=== PATIENT | male | born 1995 | race Caucasian/White ===

== ENCOUNTER 2021-03-06 13:27 | Emergency (ER) | payer MEDICAID ==
[~2021-03-06] VITALS: Ht 175.3 cm; Wt 102.1 kg
[2021-03-06 13:34] VITALS: BP_SYST 150
[2021-03-06 15:11] LABS: BASOPHILS % (AUTO) 0.6 % (0.0-2.0); EOSINOPHILS % (AUTO) 0.2 % (0.0-4.0); HEMATOCRIT 42.2 % (36-54); HEMOGLOBIN 14.1 g/dL (14.0-18.0); LYMPHOCYTES # (AUTO) 1.2 K/uL (1.0-5.5); LYMPHOCYTES % (AUTO) 14.3 % (20.5-51.5); MEAN CORPUSCULAR HEMOGLOBIN 30 pg (27-31); MEAN CORPUSCULAR HGB CONC 34 % (32-36); MEAN CORPUSCULAR VOLUME 88 fL (79.0-98.0); MONOCYTES # (AUTO) 0.4 K/uL (0.0-1.0); MONOCYTES % (AUTO) 5.1 % (1.7-9.3); NEUTROPHILS # (AUTO) 6.5 K/uL (1.8-7.7); NEUTROPHILS % (AUTO) 79.8 % (40.0-70.0); PLATELET COUNT (AUTO) 229 K/uL (130-430); RED BLOOD CELL COUNT(AUTO) 4.79 MIL/uL (4.2-6.2); RED CELL DISTRIBUTION WIDTH 13.5 % (9.0-15.0); WHITE BLOOD COUNT (AUTO) 8.2 K/uL (4.8-10.8)
[2021-03-06 15:28] LABS: CALCIUM 9.4 mg/dL (8.4-11.0); CREATININE 1.02 mg/dL (0.55-1.30); POTASSIUM 3.7 mmol/L (3.5-5.1)
[2021-03-06 15:43] LABS: ALBUMIN 4.6 g/dL (3.4-4.8); PHOSPHORUS 3.7 mg/dL (2.7-4.5); THYROID STIMULATING HORMONE 0.29 uIu/mL (0.36-3.74); TOTAL BILIRUBIN 0.5 mg/dL (0.0-1.0)
[2021-03-06 16:43] VITALS: BP_SYST 150
== END 2021-03-06 16:43 | disposition home or self-care (01) ==
LOC: SED 13:27
DX: R20.2 Paresthesia of skin (principal); R03.0 Elevated blood-pressure reading, without diagnosis of hypertension; E03.9 Hypothyroidism, unspecified
CPT/HCPCS: 36415; 80053; 83735; 84100; 84443; 85025; 99283

== ENCOUNTER 2021-04-10 19:48 | Emergency (ER) | payer MEDICAID ==
[~2021-04-10] VITALS: Ht 175.3 cm; Wt 95.3 kg
[2021-04-10 20:00] VITALS: BP_SYST 125
--- NOTE | 2021-04-10 22:20 | NUR ---
Patient to ER bed 4 to gown for evaluation. Side rails up.
--- NOTE | 2021-04-10 22:26 | NUR ---
PATIENT AAOX4 AND AMBULATORY FROM HOME C/O COUGH SINCE FRIDAY. STATED HAD A COVID TEST DONE TODAY AND WAS NEGATIVE. HAS BEEN HAVING WORSENING COUGH THESE PAST COUPLE DAYS. VSS. HX OF HYPOTHYROIDISM, ASTHMA.
--- NOTE | 2021-04-10 22:30 | NUR ---
DR. CEDEÑO AT BEDSIDE FOR EVALUATION.
[2021-04-10] MEDS ORDERED: IPRATROPIUM/ALBUTEROL SULFATE 3 ML AMPUL.NEB (DUONEB) INH ONE (22:45)
--- NOTE | 2021-04-10 22:45 | NUR ---
RESPIRATORY AT BEDSIDE TO GIVE BREATHING TX.
[2021-04-10] MEDS ORDERED: ALBMDI INH (22:55)
[2021-04-10 23:06] VITALS: BP_SYST 125
--- NOTE | 2021-04-10 23:08 | NUR ---
Patient given written and verbal discharge instructions and verbalizes understanding. DR. DAVIDSON UGARTE MD discussed with patient the results and treatment provided. Patient in stable condition. ID arm band removed. Rx of VENTOLIN given. Patient educated on pain management and to follow up with PMD. Pain Scale 0/10 Opportunity for questions provided and answered. Medication side effect fact sheet provided.
== END 2021-04-10 23:08 | disposition home or self-care (01) ==
LOC: SED 19:48
DX: J45.901 Unspecified asthma with (acute) exacerbation (principal); J06.9 Acute upper respiratory infection, unspecified; E03.9 Hypothyroidism, unspecified; Z79.899 Other long term (current) drug therapy
CPT/HCPCS: 94640; 99283

== ENCOUNTER 2021-04-15 14:16 | Emergency (ER) | payer MEDICAID, SELFPAY ==
[~2021-04-15 14:16] MED LIST: ALBMDI INH
--- NOTE | 2021-04-15 15:50 | NUR ---
DR DAUGHERTY IN TO ASSESS
[2021-04-15] MEDS ORDERED: PRED20TA PO (16:56)
--- NOTE | 2021-04-15 17:35 | NUR ---
CALM, ALERT, RESP UNLABORED, SKIN WAR AND D RY
--- NOTE | 2021-04-15 17:44 | NUR ---
Patient given written and verbal discharge instructions and verbalizes understanding. ER MD discussed with patient the results and treatment provided. Patient in stable condition. ID arm band removed. Rx ofPREDNISONE given. Patient educated on pain management and to follow up with PMD. Pain Scale . Opportunity for questions provided and answered. Medication side effect fact sheet provided.
[2021-04-15 17:46] VITALS: BP_SYST 134
== END 2021-04-15 17:46 | disposition home or self-care (01) ==
LOC: SED 14:16
DX: U07.1 COVID-19 (principal); E03.9 Hypothyroidism, unspecified; J45.909 Unspecified asthma, uncomplicated; Z79.899 Other long term (current) drug therapy
CPT/HCPCS: 71045; 99283

== ENCOUNTER 2022-03-30 09:42 | Emergency (ER) | payer MEDICAID ==
[~2022-03-30] VITALS: Ht 175.3 cm; Wt 93.9 kg
[~2022-03-30 09:42] MED LIST changes: +PRED20TA PO
[2022-03-30 09:50] VITALS: BP_SYST 120
[2022-03-30] MEDS ORDERED: FAMOTIDINE 20 MG TABLET PO ONE (11:00)
[2022-03-30] MEDS ORDERED: MAG-AL HYDROX/SIMETH 30 ML UDC PO ONE (11:00)
--- NOTE | 2022-03-30 11:18 | NUR ---
Patient to ER bed 5 to gown for evaluation. Side rails up. Report given to PAMELLA FRANK.
--- NOTE | 2022-03-30 11:20 | NUR ---
RECEIVED PT FROM [facility]. PT BIBS FOR SOB. PT AAOX4. RESP E/U. NO R/A. PT HAS C/O UPSET STOMACH. ABDOMEN SOFT, NONTENDER. DENIES DIARRHEA/CONSTIPATION. NORMAL S1S2 NOTED. SKIN WARM, INTACT, CAP REFILL < 3SECS. NO EDEMA. DENIES PAIN SIDERAILS UP X2.
--- NOTE | 2022-03-30 11:26 | NUR ---
DR. TERRY AT BEDSIDE TO ASSESS PT.
[2022-03-30 11:42] LABS: ANION GAP 5 (5-15); CALCIUM 9.2 mg/dL (8.4-11.0); CHLORIDE 99 mmol/L (98-107); CREATININE 1.19 mg/dL (0.55-1.30); GLUCOSE 89 mg/dL (70-99); POTASSIUM 3.7 mmol/L (3.5-5.1); UREA NITROGEN, BLOOD 21 mg/dL (8-21)
[2022-03-30 11:46] LABS: BASOPHILS % (AUTO) 0.4 % (0.0-2.0); EOSINOPHILS % (AUTO) 0.3 % (0.0-4.0); HEMATOCRIT 41.3 % (36-54); HEMOGLOBIN 14.1 g/dL (14.0-18.0); LYMPHOCYTES # (AUTO) 2.5 K/uL (1.0-5.5); LYMPHOCYTES % (AUTO) 30.7 % (20.5-51.5); MEAN CORPUSCULAR HEMOGLOBIN 30 pg (27-31); MEAN CORPUSCULAR HGB CONC 34 % (32-36); MEAN CORPUSCULAR VOLUME 87 fL (79.0-98.0); MONOCYTES # (AUTO) 0.6 K/uL (0.0-1.0); MONOCYTES % (AUTO) 7.2 % (1.7-9.3); NEUTROPHILS # (AUTO) 5.1 K/uL (1.8-7.7); NEUTROPHILS % (AUTO) 61.4 % (40.0-70.0); PLATELET COUNT (AUTO) 226 K/uL (130-430); RED BLOOD CELL COUNT(AUTO) 4.72 MIL/uL (4.2-6.2); RED CELL DISTRIBUTION WIDTH 12.8 % (9.0-15.0); WHITE BLOOD COUNT (AUTO) 8.2 K/uL (4.8-10.8)
[2022-03-30 11:49] LABS: ALANINE AMINOTRANSFERASE 22 U/L (12-78); ALBUMIN 4.1 g/dL (3.4-4.8); ASPARTATE AMINOTRANSFERASE 11 U/L (10-37); TOTAL BILIRUBIN 0.5 mg/dL (0.0-1.0)
[2022-03-30 11:52] LABS: GFR AFRICAN AMERICAN 94 mL/min (>90)
--- NOTE | 2022-03-30 12:02 | NUR ---
SCHEDULED MEDS GIVEN ORDERED.
[2022-03-30] MEDS ORDERED: ALBU2.5V7 INH (13:07)
[2022-03-30 13:44] VITALS: BP_SYST 118
--- NOTE | 2022-03-30 14:43 | NUR ---
Patient given written and verbal discharge instructions and verbalizes understanding. ER MD discussed with patient the results and treatment provided. Patient in stable condition. ID arm band removed. IV catheter removed intact and dressing applied, no active bleeding. Rx of ALBURTEROL given. Patient educated on pain management and to follow up with PMD. Pain Scale 0/10. Opportunity for questions provided and answered. Medication side effect fact sheet provided.
== END 2022-03-30 13:44 | disposition home or self-care (01) ==
LOC: SED 09:42
DX: R06.02 Shortness of breath (principal); J45.909 Unspecified asthma, uncomplicated; R05.9 Cough, unspecified; Z79.899 Other long term (current) drug therapy; Z20.822 Contact with and (suspected) exposure to COVID-19
CPT/HCPCS: 36415; 71045; 80053; 84484; 85025; 85379; 93005; 99285